=== PATIENT | female | born 1955 | race Caucasian/White ===

== ENCOUNTER 2017-07-01 12:05 | Emergency (ER) | payer OTHER ==
[2017-07-01] MEDS ORDERED: Ondansetron HCl/PF 4 MG/2 ML Vial ONE (12:19)
--- NOTE | 2017-07-01 12:53 | RAD ---
FOUR VIEWS OF THE LEFT FEMUR: INDICATION: Fall with left leg pain. FINDINGS: There is a heavily comminuted supracondylar distal femoral fracture with subcondylar extension. Ther e is a lipohemarthrosis within the left knee. The distal fracture fragments displace slightly night clerk iorly shaft width. There is advanced osteoarthrosis of the left knee. There is diffuse osteopen ia. No additional fracture is evident. IMPRESSION: Comminuted supracondylar left distal femur fracture with intercondylar extension. POS: [facility]
== END 2017-07-01 14:43 | disposition short-term general hospital (02) ==
LOC: NAV ERS 12:05
DX: S72.462A Displaced supracondylar fracture with intracondylar extension of lower end of left femur, initial encounter for closed fracture (principal); E78.5 Hyperlipidemia, unspecified; E78.2 Mixed hyperlipidemia; E11.9 Type 2 diabetes mellitus without complications; I10 Essential (primary) hypertension; Z79.899 Other long term (current) drug therapy; W18.09XA Striking against other object with subsequent fall, initial encounter
CPT/HCPCS: 29505; 96374; J2405

== ENCOUNTER 2022-10-25 17:15 | Outpatient (CLI) | payer MEDICARE, OTHER | END 2022-10-25 17:16 | disposition home or self-care (01) | LOC: NAV RAD 17:15 | PROVIDERS: ATTEND Family Medicine | DX: R05.8 Other specified cough (principal); R50.9 Fever, unspecified | CPT/HCPCS: 71046 ==

== ENCOUNTER 2024-01-31 13:48 | Emergency (ER) | payer OTHER ==
[2024-01-31] MEDS ORDERED: AMOXicillin 250 MG CAP ONE (14:34)
[2024-01-31] MEDS ORDERED: Ketorolac Tromethamine 30 MG (1 mL) VIAL ONE (14:34)
== END 2024-01-31 14:45 | disposition home or self-care (01) ==
LOC: NAV ERS 13:48
DX: K08.89 Other specified disorders of teeth and supporting structures (principal); E11.9 Type 2 diabetes mellitus without complications; E78.00 Pure hypercholesterolemia, unspecified; Z79.899 Other long term (current) drug therapy
CPT/HCPCS: 96372; 99282; J1885